=== PATIENT | male | born 1955 | race Caucasian/White ===

== ENCOUNTER → 2020-07-22 | Outpatient (CLI) | payer MEDICARE | LOC: CARD 12:49 | PROVIDERS: ATTEND Family Medicine | DX: I48.0 Paroxysmal atrial fibrillation (principal); I08.1 Rheumatic disorders of both mitral and tricuspid valves | CPT/HCPCS: 93306 ==

== ENCOUNTER 2020-07-29 14:14 | Inpatient (IN) | payer MEDICARE ==
[~2020-07-29] VITALS: Ht 188 cm; Wt 94.3 kg
[2020-07-29] VITALS (9 sets, daily range): BP systolic 85–125; BP diastolic 58–100
[2020-07-29] MEDS ORDERED: ENOXAPARIN 100 MG/1 ML (LOVENOX) SYR SC SCH (14:45)
[2020-07-29] MEDS ORDERED: dilTIAZem DRIP PRE-MIX 125 ML IV ONE (14:47)
[2020-07-29] MEDS ORDERED: DIGOXIN 0.25 MG/ML (LANOXIN) 2 ML AMP ONE (14:47)
[2020-07-29] MEDS ORDERED: ENOXAPARIN 40 MG/0.4 ML (LOVENOX) SYR ONE (14:48)
[2020-07-29 14:59] LABS: HEMOGLOBIN 13.6 G/DL (13.3-17.7); WHITE BLOOD COUNT 6.5 10^3/uL (4.3-11.0)
[2020-07-29 15:00] LABS: MEAN PLATELET VOLUME 12.1 FL (7.4-10.4)
[2020-07-29] MEDS ORDERED: APIX5TAB PO (15:01)
[2020-07-29] MEDS ORDERED: MULT-974 PO (15:01)
[2020-07-29] MEDS ORDERED: BUME1TAB8 PO (15:01)
[2020-07-29] MEDS ORDERED: METO-333 PO (15:01)
[2020-07-29] MEDS ORDERED: ALLO300T2 PO (15:01)
[2020-07-29] MEDS: dilTIAZem DRIP PRE-MIX 125 ML IV SCH (15:02)
[2020-07-29 15:12] LABS: ALANINE AMINOTRANSFERASE 63 U/L (0-55); ALBUMIN 3.9 GM/DL (3.2-4.5); ALKALINE PHOSPHATASE 112 U/L (40-136); BILIRUBIN,TOTAL 1.4 MG/DL (0.1-1.0); BUN/CREATININE RATIO 16; CALCIUM 8.7 MG/DL (8.5-10.1); CARBON DIOXIDE 27 MMOL/L (21-32); CHLORIDE 100 MMOL/L (98-107); CHOLESTEROL 111 MG/DL (< 200); CREATININE SERUM 1.18 MG/DL (0.60-1.30); GFR ESTIMATED > 60; GLUCOSE 101 MG/DL (70-105); HDL CHOLESTEROL 28 MG/DL (40-60); POTASSIUM 3.6 MMOL/L (3.6-5.0); SODIUM 138 MMOL/L (135-145); TOTAL PROTEIN 6.9 GM/DL (6.4-8.2); TRIGLYCERIDES 111 MG/DL (<150); VLDL CHOLESTEROL 22 MG/DL (5-40)
[2020-07-29] MEDS ORDERED: CATHETER FLUSH 10 ML SYR IV PRN (15:15)
[2020-07-29 15:20] LABS: INR 1.4 (0.8-1.4); PROTHROMBIN TIME PATIENT 17.4 SEC (12.2-14.7)
[2020-07-29] MEDS ORDERED: VIT1CAPS44 PO (15:44)
--- NOTE | 2020-07-29 16:52 | Cardiology History & Physical ---
HPI-Cardiology Cardiology Consultation Date of Consultation 07/29/20 Date of Admission Time Seen by Provider: 13:00 Indication: Shortness of breath HPI 65 years old gentleman seen in the office today for dyspnea, in atrial fibrillation and congestive heart failure, discussed the management plan and recommended admission to the ICU PMH-Cardiology Other PMHx discussed below Social History Patient Social History Marrital Status: Employed/Student: employed Family Hx Other non contributory ROS-Cardiology Review of Systems General: No Chills, No Night Sweats, No Fatigue, No Malaise, No Appetite HEENT: No Head Aches, No Visual Changes, No Eye Pain, No Ear Pain, No Dysphasia, No Sinus Congestion, No Post Nasal Drip, No Sore Throat Pulmonary: Dyspnea; No Cough, No Pleuritic Chest Pain Cardiovascular: Edema; No: Chest Pain, Palpitations, Orthopnea, Paroxysmal Noc. Dyspnea, Lt Headedness Gastrointestinal: No: Nausea, Vomiting, Abdominal Pain, Diarrhea, Constipation, Melena, Hematochezia Genitourinary: No Dysuria, No Frequency, No Incontinence, No Hematuria, No Retention Musculoskeletal: No: neck pain, shoulder pain, arm pain, back pain, hand pain, leg pain, foot pain Neurological: No: Weakness, Numbness, Incoordination, Change in speech, Confusion, Seizures Home Medications & Allergies Allergies: Coded Allergies: Penicillins (Verified Allergy, Unknown, 07/29/20) Home Medication List Reviewed: Yes Exam-Cardiology Vital Signs Vital Signs Date Time Temp Pulse Resp B/P (MAP) Pulse Ox O2 Delivery O2 Flow Rate FiO2 07/29/20 16:07 36.0 07/29/20 14:50 93 Room Air Exam General Appearance: Alert, Oriented X3, Cooperative, No Acute Distress HEENT: Atraumatic, PERRLA Respiratory: Clear to Auscultation, Normal Air Movement Cardiovascular: Normal S1, Normal S2, No Murmurs, Other (a fib) Abdominal: Normal Bowel Sounds, Soft, No Tenderness, No Hepatosplenomegaly, No Masses Extremities: No Clubbing, No Cyanosis, Normal Pulses, No Tenderness/Swelling, Other (pedal edema) Skin: No Rashes, No Breakdown, No Significant Lesion Neuro: Normal Gait, Normal Speech, Strength at 5/5 X4 Ext, Normal Tone, Sensation Intact Psych/Mental Status: Mental Status NL, Mood NL Results Labs Labs Laboratory Tests 07/29/20 14:47: White Blood Count 6.5, Red Blood Count 4.92, Hemoglobin 13.6, Hematocrit 41, Mean Corpuscular Volume 84, Mean Corpuscular Hemoglobin 28, Mean Corpuscular Hemoglobin Concent 33, Red Cell Distribution Width 15.4H, Platelet Count 167, Mean Platelet Volume 12.1H, Prothrombin Time 17.4H, INR Comment 1.4, Activated Partial Thromboplast Time 26, Sodium Level 138, Potassium Level 3.6, Chloride Level 100, Carbon Dioxide Level 27, Anion Gap 11, Blood Urea Nitrogen 19H, Creatinine 1.18, Estimat Glomerular Filtration Rate > 60, BUN/Creatinine Ratio 16, Glucose Level 101, Calcium Level 8.7, Corrected Calcium 8.8, Total Bilirubin 1.4H, Aspartate Amino Transf (AST/SGOT) 59H, Alanine Aminotransferase (ALT/SGPT) 63H, Alkaline Phosphatase 112, Troponin I < 0.028, B-Type Natriuretic Peptide 1612.6H, Total Protein 6.9, Albumin 3.9, Triglycerides Level 111, Cholesterol Level 111, LDL Cholesterol Direct 73, VLDL Cholesterol 22, HDL Cholesterol 28L, Thyroid Stimulating Hormone (TSH) 2.57 A/P-Cardiology Admission Diagnosis CHF Atrial fibrillation edema Admission Status: Inpatient Order (span 2 midnights) Reason for Inpatient Admission: CHF atrial fibrillation Assessment/Plan Congestive heart failure, acute left ventricular systolic dysfunction, ejection fraction 20 to 25%, left atrium dilated, moderate to severe mitral regurgitation, mild to moderate tricuspid regurgitation, PA pressure 45 to 50 mmHg. I am admitting him to ICU and starting diuretic Atrial fibrillation with rapid ventricular response, heart rate is 113. Maintained on Toprol 25 twice daily, patient is being admitted, I will start Cardizem drip and titrate Work-up for heart failure will include reversible causes and cardiac catheterization, evaluate TSH, hold Eliquis for now, start Lovenox. Add Entresto. Evaluate lipid profile Complex management plan, patient will be admitted for intensive care unit, initiating aggressive medical therapy and possible LifeVest ZOHRA CUBA MD Jul 29, 2020 16:52
[2020-07-29] MEDS: ENOXAPARIN 300 MG/3 ML (LOVENOX) MULTI-DOSE VIAL SQ SCH (17:00)
[2020-07-29] MEDS: FUROSEMIDE 40 MG/4 ML INJ (LASIX) IVP SCH (17:00)
[2020-07-29] MEDS ORDERED: MELATONIN 3 MG TABLET ONE (21:05)
[2020-07-29] MEDS: MELATONIN 3 MG TABLET PO SCH (21:20)
[2020-07-29] MEDS: meTOprolol TARTRATE 25 MG (LOPRESSOR) TABLET PO SCH (21:20)
[2020-07-29] MEDS: SACUBITRIL/VALSARTAN 24/26 MG (ENTRESTO) TABLET PO SCH (21:20)
[2020-07-29] MEDS ORDERED: NS IV 500 ML 500 ML IV SCH (22:00)
[2020-07-29] MEDS: CATHETER FLUSH 10 ML SYR IV SCH (22:02)
[2020-07-30] VITALS (25 sets, daily range): BP systolic 80–130; BP diastolic 57–100
[2020-07-30] MEDS: CATHETER FLUSH 10 ML SYR IV SCH ×3 (06:42→20:07)
[2020-07-30] MEDS: ENOXAPARIN 300 MG/3 ML (LOVENOX) MULTI-DOSE VIAL SQ SCH ×2 (06:42→17:31)
[2020-07-30 06:56] LABS: HEMOGLOBIN 11.9 g/dL (13.3-17.7); MEAN PLATELET VOLUME 11.5 fL (9.0-12.2); WHITE BLOOD COUNT 5.2 10^3/uL (4.3-11.0)
[2020-07-30 07:09] LABS: CHLORIDE 100 MMOL/L (98-107); POTASSIUM 2.8 MMOL/L (3.6-5.0); SODIUM 140 MMOL/L (135-145)
[2020-07-30 07:11] LABS: CALCIUM 8.1 MG/DL (8.5-10.1); GLUCOSE 85 MG/DL (70-105)
[2020-07-30 07:13] LABS: CARBON DIOXIDE 28 MMOL/L (21-32)
[2020-07-30 07:15] LABS: CREATININE SERUM 0.94 MG/DL (0.60-1.30); GFR ESTIMATED > 60
[2020-07-30 07:16] LABS: BUN/CREATININE RATIO 18
[2020-07-30] MEDS: FUROSEMIDE 40 MG/4 ML INJ (LASIX) IVP SCH ×2 (08:34→17:31)
[2020-07-30] MEDS: KCL 20 MEQ TAB (K-DUR) PO SCH ×3 (08:34→12:51)
[2020-07-30] MEDS: PANTOPRAZOLE 40 MG (PROTONIX) TAB PO SCH (08:35)
[2020-07-30] MEDS: meTOprolol TARTRATE 25 MG (LOPRESSOR) TABLET PO SCH ×2 (08:35→20:07)
[2020-07-30] MEDS: ASPIRIN E.C. 81 MG (ECOTRIN) TAB PO SCH (08:35)
[2020-07-30] MEDS: SACUBITRIL/VALSARTAN 24/26 MG (ENTRESTO) TABLET PO SCH ×2 (08:35→20:07)
--- NOTE | 2020-07-30 10:40 | Cardiology Progress Note ---
Subjective Date Seen by Provider: Jul 30, 2020 Time Seen by Provider: 10:37 Subjective/Events-last exam patient was seen and evaluated at bedside, laying down comfortably, having peripheral edema, reporting mild improvement in symptoms Review of Systems General: No Chills, No Night Sweats; Fatigue; No Malaise, No Appetite, No Other HEENT: No Head Aches, No Visual Changes, No Eye Pain, No Ear Pain, No Dysphasia, No Sinus Congestion, No Post Nasal Drip, No Sore Throat, No Other Pulmonary: Dyspnea; No Cough, No Pleuritic Chest Pain, No Other Cardiovascular: Edema; No: Chest Pain, Palpitations, Orthopnea, Paroxysmal Noc. Dyspnea, Lt Headedness, Other Objective-Cardiology Exam Last Set of Vital Signs Vital Signs 07/29/20 07/30/20 20:00 09:00 Pulse 98 Resp 25 B/P (MAP) 99/86 (90) Pulse Ox 91 O2 Delivery Room Air Capillary Refill : I&O Intake and Output 07/30/20 00:00 Intake Total 450 ml Output Total 2750 ml Balance -2300 ml Intake Oral 450 ml Output Urine Total 2750 ml General: Alert, Oriented X3, Cooperative, No Acute Distress HEENT: Atraumatic, PERRLA Neck: Supple, No JVD Lungs: Clear to Auscultation, Normal Air Movement Heart: Normal S1, Normal S2, No Murmurs, Other (a fib) Abdomen: Normal Bowel Sounds, Soft, No Tenderness, No Hepatosplenomegaly, No Masses Extremities: No Clubbing, No Cyanosis, Normal Pulses, No Tenderness/Swelling, Other (+3 pedal edema) Skin: No Rashes, No Breakdown, No Significant Lesion Neuro: Normal Gait, Normal Speech, Strength at 5/5 X4 Ext, Normal Tone, Sensation Intact Psych/Mental Status: Mental Status NL, Mood NL Results Lab Laboratory Tests 07/29/20 14:47 07/30/20 06:48 A/P-Cardiology Admission Diagnosis CHF Atrial fibrillation edema Assessment/Plan Congestive heart failure, acute left ventricular systolic dysfunction, ejection fraction 20 to 25%, left atrium dilated, moderate to severe mitral regurgitation, mild to moderate tricuspid regurgitation, PA pressure 45 to 50 mmHg. responding to diuretics, continue to replace and monitor Atrial fibrillation without ventricular response, better at this time, continue on Cardizem drip, continue on metoprolol and Lovenox. Planning to start long- term oral anticoagulation Hypokalemia, replace and monitor Questionable underlying coronary artery disease with severe cardiomyopathy, planning to proceed with left heart catheterization possible PTCA then will consider TJ and possible cardioversion ZOHRA CUBA MD Jul 30, 2020 10:40
--- NOTE | 2020-07-30 10:59 | Diagnostic Imaging Report ---
INDICATION: Dyspnea. TECHNIQUE: Single view chest 10:52 AM. CORRELATION STUDY: None FINDINGS: Heart size is enlarged. Pulmonary vasculature overall within normal limits. Asymmetric increased density in the right perihilar region. More peripheral lung price are otherwise clear. IMPRESSION: 1. Cardiac enlargement without failure. 2. Asymmetric density in the right hilum. Possibility of infiltrate and/or atelectasis not excluded. Would recommend short-term follow-up imaging to exclude underlying mass lesion given the focal asymmetry. Dictated by: Dictated on workstation # [id number]
[2020-07-30] MEDS: dilTIAZem DRIP PRE-MIX 125 ML IV SCH (14:50)
[2020-07-30] MEDS ORDERED: KCL 20 MEQ TAB (K-DUR) PO ONE (17:23)
[2020-07-30] MEDS ORDERED: KCL 20 MEQ TAB (K-DUR) PO NR (17:30)
[2020-07-30] MEDS: MELATONIN 3 MG TABLET PO SCH (20:07)
[2020-07-31] VITALS (28 sets, daily range): BP systolic 93–130; BP diastolic 50–108
[2020-07-31 03:27] LABS: HEMOGLOBIN 11.9 g/dL (13.3-17.7); MEAN PLATELET VOLUME 12.1 fL (9.0-12.2); WHITE BLOOD COUNT 5.8 10^3/uL (4.3-11.0)
[2020-07-31 03:54] LABS: ALANINE AMINOTRANSFERASE 39 U/L (0-55); ALBUMIN 3.2 GM/DL (3.2-4.5); ALKALINE PHOSPHATASE 83 U/L (40-136); BUN/CREATININE RATIO 15; CALCIUM 8.2 MG/DL (8.5-10.1); CARBON DIOXIDE 28 MMOL/L (21-32); CHLORIDE 101 MMOL/L (98-107); CREATININE SERUM 1.01 MG/DL (0.60-1.30); GFR ESTIMATED > 60; MAGNESIUM 1.7 MG/DL (1.6-2.4); SODIUM 140 MMOL/L (135-145); TOTAL PROTEIN 5.5 GM/DL (6.4-8.2)
[2020-07-31] MEDS: POTASSIUM CL 10MEQ/50ML IVPB 50 ML IV SCH (03:55)
[2020-07-31] MEDS: MAGNESIUM 1 GM/100 ML IVPB 100 ML IV SCH (03:56)
[2020-07-31] MEDS: KCL 20 MEQ TAB (K-DUR) PO SCH (03:56)
[2020-07-31 04:04] LABS: GLUCOSE 96 MG/DL (70-105)
[2020-07-31] MEDS: ENOXAPARIN 300 MG/3 ML (LOVENOX) MULTI-DOSE VIAL SQ SCH (04:52)
[2020-07-31] MEDS: CATHETER FLUSH 10 ML SYR IV SCH ×3 (04:52→19:58)
[2020-07-31] MEDS ORDERED: HEParin (CATH LAB) 2,000 ML IV ONE (06:43)
[2020-07-31] MEDS ORDERED: LIDOCAINE 1% INJ 20 ML 20 ML VIAL ONE (06:43)
[2020-07-31] MEDS ORDERED: fentaNYL INJ 100 MCG/2 ML AMP ONE (07:07)
[2020-07-31] MEDS ORDERED: MIDAZOLAM 5 MG/5 ML (VERSED) VIAL ONE (07:07)
[2020-07-31] MEDS ORDERED: NS IV 1000 ML 1,000 ML ONE (07:45)
[2020-07-31] MEDS: FUROSEMIDE 40 MG/4 ML INJ (LASIX) IVP SCH ×2 (08:00→16:49)
[2020-07-31] MEDS: NS IV 1000 ML 1,000 ML IV SCH ×4 (08:06→19:22)
[2020-07-31] MEDS ORDERED: HEParin 1000 UNIT/ML (10ML VIAL) FOR BOLUS ONE (08:15)
[2020-07-31] MEDS ORDERED: NITRO DRIP 25000 MCG/D5W 0 ML IV ONE (08:21)
[2020-07-31] MEDS ORDERED: CLOPIDOGREL 300 MG (PLAVIX) TABLET PO ONE (08:31)
[2020-07-31] MEDS ORDERED: ASPIRIN 325 MG (5 GR) TABLET ONE (08:31)
--- NOTE | 2020-07-31 08:52 | Cardiac Procedure Note-CS/ASA ---
Pre-Procedure Note Pre-Op Procedure Note H&P Reviewed The H&P was reviewed, patient examined and no changes noted. Date H&P Reviewed: Jul 31, 2020 Time H&P Reviewed: 08:00 Conscious Sedation Pre-Proced Time 08:00 ASA Score 3 For ASA 3 and 4: Consider anesthesia and medical clearance. Also, for patients with a history of failed moderate sedation consider anesthesia. Airway Lungs Heart ASA score ASA 1: a normal healthy patient ASA 2: a patient with a mild systemic disease (mid diabetes, controlled hypertension, obesity x ASA 3: a patient with a severe systemic disease that limits activity (angina, COPD, prior Myocardial infarction) ASA 4: a patient with an incapacitating disease that is a constant threat to life (CHF, renal failure) ASA 5: a moribund patient not expected to survive 24 hrs. (ruptured aneurysm) ASA 6: a declared brain- patient whose organs are being harvested. For emergent operations, add the letter E after the classification Mallampati Classification Grade 3 Sedation Plan Analgesia, Amnesia, Plan communicated to team members, Discussed options with patient/fam, Discussed risks with patient/fam The patient is an appropriate candidate to undergo the planned procedure, sedation, and anesthesia. The patient immediately re-assessed prior to indication. ZOHRA CUBA MD Jul 31, 2020 8:52 am
[2020-07-31] MEDS ORDERED: PATIENT MAY USE OWN MEDS, ALL PO SCH (09:00)
[2020-07-31] MEDS: PANTOPRAZOLE 40 MG (PROTONIX) TAB PO SCH (09:00)
--- NOTE | 2020-07-31 09:03 | Cardiac Cath Report ---
Cardiac Cath Report Physician (s)/Quality Engineer (s) Physician ZOHRA CUBA MD Pre-Procedure Diagnosis Pre-Procedure Diagnosis: congestive heart failure Post-Procedure Note Procedure Start Date: Jul 31, 2020 Name of Procedure: Left heart catheterization Stent to the circumflex artery Findings/Procedure Note PROCEDURE NOTE: 65 years old gentleman with paroxysmal atrial fibrillation, severe cardiomyopathy, was scheduled for cardiac catheterization due to the severe cardiomyopathy. After explaining the procedure to the patient, all pros and cons were explained, all questions were answered. The patient signed the consent and then he was placed on the cardiac catheterization laboratory. Groin was prepped SL fashion local anesthesia was used. Sheath placed in the right femoral artery. Radha right and left catheter were used to access the coronary system. Pigtail was used to access the left ventricular cavity. Left ventriculogram was not done, pressure was measured Patient was noted to have severe stenosis in the mid circumflex artery, given 6000 units of heparin, EBU 4 was advanced to the left coronary system, BMW wire advanced through the circumflex artery and 4 distally. I proceeded with primary stenting using Maisha 3 x 15 mm expanded to 3.13 mm under 17 braxton with excellent results. At the end of the procedure the sheath was removed. Closure device was deployed FINDINGS: Hemodynamics LV 100/19, end-diastolic pressure of 19 Aorta 103/77 mean of 74 ANATOMY: Left Main is free of obstructive disease Left Anterior Descending has mild ectasia proximally, the first diagonal artery has moderate stenosis at its ostium followed by aneurysmal dilation, medical therapy is recommended Left Circumflex has severe stenosis at the midportion, primary stenting using Maisha 3 x 15 mm expanded to 3.13 mm with excellent results Right Coronary Artery has diffuse ectasia with slow flow, nonobstructive disease LV Gram was not done, pressure was measured CONCLUSION: 1. Severe mid circumflex artery, successful stenting using Maisha 3 x 15 mm expanded to 3.13 mm with excellent results 2. Moderate stenosis at the ostium of the first diagonal artery followed by aneurysmal dilatation, medical therapy is recommended 3. Mild ectasia in the LAD, significant ectasia in the right coronary artery with slow flow in the right coronary artery due to small vessel disease 4. Elevated left ventricular end-diastolic pressure DISCUSSION AND RECOMMENDATION: Patient has severe cardiomyopathy, probably ischemic and nonischemic due to the atrial fibrillation with rapid ventricular response, we'll try to achieve adequate heart rate controlled, started on aspirin and Plavix in addition to starting Eliquis, continue to maximize medical therapy Anesthesia Type: Conscious Sedation Estimated blood loss (mL): 25 ml Contrast Amount: 96 ml Total Radiation Dose: 1186 mGy Post-Procedure Diagnosis Post-operative diagnosis: Coronary artery disease Congestive heart failure, acute left ventricular systolic dysfunction, nonischemic cardiomyopathy Persistent atrial fibrillation Hypertension ZOHRA CUBA MD Jul 31, 2020 9:03 am
--- NOTE | 2020-07-31 09:16 | Cardiology Progress Note ---
Subjective Date Seen by Provider: Jul 31, 2020 Time Seen by Provider: 09:14 Subjective/Events-last exam Patient was seen and evaluated, doing well. No chest pain. Groin is healing well Review of Systems General: No Chills, No Night Sweats, No Fatigue, No Malaise, No Appetite, No Other HEENT: No Head Aches, No Visual Changes, No Eye Pain, No Ear Pain, No Dysphasia, No Sinus Congestion, No Post Nasal Drip, No Sore Throat, No Other Pulmonary: No Dyspnea, No Cough, No Pleuritic Chest Pain, No Other Cardiovascular: Edema; No: Chest Pain, Palpitations, Orthopnea, Paroxysmal Noc. Dyspnea, Lt Headedness, Other Objective-Cardiology Exam Last Set of Vital Signs Vital Signs 07/31/20 07/31/20 07:38 09:00 Temp 36.4 Pulse 141 Resp 22 B/P (MAP) 93/50 (64) Pulse Ox 90 O2 Delivery Room Air Capillary Refill : Less Than 3 Seconds I&O Intake and Output 07/31/20 00:00 Intake Total 2175 ml Output Total 4450 ml Balance -2275 ml Intake Oral 2175 ml Output Urine Total 4450 ml General: Alert, Oriented X3, Cooperative, No Acute Distress HEENT: Atraumatic, PERRLA Neck: Supple, No JVD Lungs: Clear to Auscultation, Normal Air Movement Heart: Normal S1, Normal S2, No Murmurs, Other (a fib) Abdomen: Normal Bowel Sounds, Soft, No Tenderness, No Hepatosplenomegaly, No Masses Extremities: No Clubbing, No Cyanosis, Normal Pulses, No Tenderness/Swelling, Other (+3 pedal edema) Skin: No Rashes, No Breakdown, No Significant Lesion Neuro: Normal Gait, Normal Speech, Strength at 5/5 X4 Ext, Normal Tone, Sensation Intact Psych/Mental Status: Mental Status NL, Mood NL Results Lab Laboratory Tests 07/30/20 16:53 07/31/20 03:00 A/P-Cardiology Admission Diagnosis CHF Atrial fibrillation edema Assessment/Plan Congestive heart failure, acute left ventricular systolic dysfunction, ejection fraction 20 to 25%, left atrium dilated, moderate to severe mitral regurgitation, mild to moderate tricuspid regurgitation, PA pressure 45 to 50 mmHg. responding to diuretics, continue on current medication and monitor Atrial fibrillation with rapid ventricular response, better at this time, continue on Cardizem drip, I am changing to oral Cardizem and continue on oral metoprolol Coronary artery disease, cardiac catheterization done showing severe mid circumflex artery stenosis, primary stenting using Maisha 3 x 15 mm expanded to 3.13 mm with excellent results. Moderate ostial diagonal artery stenosis, ectasia in the right coronary artery with slow flow, mild ectasia in the LAD and mid-diagonal artery Hypokalemia, placed, potassium is back to normal, continue to monitor ZOHRA CUBA MD Jul 31, 2020 9:16 am
[2020-07-31] MEDS: ASPIRIN E.C. 81 MG (ECOTRIN) TAB PO SCH ×2 (09:18→11:18)
[2020-07-31] MEDS: meTOprolol TARTRATE 25 MG (LOPRESSOR) TABLET PO SCH ×2 (11:18→19:50)
[2020-07-31] MEDS: SACUBITRIL/VALSARTAN 24/26 MG (ENTRESTO) TABLET PO SCH ×2 (11:18→19:50)
[2020-07-31] MEDS: CLOPIDOGREL 75 MG (PLAVIX) TABLET PO SCH (11:18)
[2020-07-31] MEDS: APIXABAN 5 MG (ELIQUIS) TABLET PO SCH ×2 (11:18→19:50)
[2020-07-31] MEDS: MELATONIN 3 MG TABLET PO SCH (19:50)
[2020-08-01] VITALS (24 sets, daily range): BP systolic 85–110; BP diastolic 54–91
[2020-08-01] MEDS ORDERED: morphine INJ 4 MG/ML 1 ML (VIAL/SYRINGE) ONE (02:03)
[2020-08-01] MEDS: morphine INJ 4 MG/ML 1 ML (VIAL/SYRINGE) IVP PRN ×2 (02:23→04:02)
[2020-08-01] MEDS: NS IV 1000 ML 1,000 ML IV SCH ×2 (04:06→05:07)
[2020-08-01 05:10] LABS: HEMOGLOBIN 10.9 g/dL (13.3-17.7); MEAN PLATELET VOLUME 11.6 fL (9.0-12.2); WHITE BLOOD COUNT 7.6 10^3/uL (4.3-11.0)
[2020-08-01 05:30] LABS: BUN/CREATININE RATIO 13; CALCIUM 8.3 MG/DL (8.5-10.1); CARBON DIOXIDE 25 MMOL/L (21-32); CHLORIDE 102 MMOL/L (98-107); CREATININE SERUM 0.95 MG/DL (0.60-1.30); GFR ESTIMATED > 60; GLUCOSE 103 MG/DL (70-105); MAGNESIUM 1.8 MG/DL (1.6-2.4); PHOSPHORUS 3.1 MG/DL (2.3-4.7); POTASSIUM 3.4 MMOL/L (3.6-5.0); SODIUM 139 MMOL/L (135-145)
[2020-08-01] MEDS: POTASSIUM CL 10MEQ/50ML IVPB 50 ML IV SCH (05:33)
[2020-08-01] MEDS: MAGNESIUM 1 GM/100 ML IVPB 100 ML IV SCH (05:33)
[2020-08-01] MEDS: KCL 20 MEQ TAB (K-DUR) PO SCH (05:33)
[2020-08-01] MEDS: CATHETER FLUSH 10 ML SYR IV SCH ×3 (05:34→20:46)
[2020-08-01] MEDS: FUROSEMIDE 40 MG/4 ML INJ (LASIX) IVP SCH ×2 (06:03→17:22)
[2020-08-01] MEDS ORDERED: LIDOCAINE 2% VISCOUS 15 ML UDC ONE (07:46)
[2020-08-01] MEDS ORDERED: proPOfol 200 MG/20 ML (DIPRIVAN) VIAL IV ONE ×2 (07:54→11:51)
[2020-08-01] MEDS ORDERED: MIDAZOLAM 5 MG/5 ML (VERSED) VIAL ONE (07:54)
[2020-08-01] MEDS ORDERED: AMIODARONE (BOLUS) 150 MG/3 ML IV ONE (08:17)
[2020-08-01] MEDS ORDERED: AMIODARONE 450 MG/9 ML (CORDARONE) VIAL IV ONE (08:17)
[2020-08-01] MEDS ORDERED: D5W 100 ML IVPB 100 ML IV ONE (08:18)
[2020-08-01] MEDS ORDERED: AMIODARONE INJECTION 150 MG in D5W 100 ML IVPB 100 ML IV ONE (08:30)
--- NOTE | 2020-08-01 08:35 | Cardiac Procedure Note-CS/ASA ---
Pre-Procedure Note Pre-Op Procedure Note H&P Reviewed The H&P was reviewed, patient examined and no changes noted. Date H&P Reviewed: Aug 01, 2020 Time H&P Reviewed: 08:00 Conscious Sedation Pre-Proced Time 08:00 ASA Score 3 For ASA 3 and 4: Consider anesthesia and medical clearance. Also, for patients with a history of failed moderate sedation consider anesthesia. Airway Lungs Heart ASA score ASA 1: a normal healthy patient ASA 2: a patient with a mild systemic disease (mid diabetes, controlled hypertension, obesity x ASA 3: a patient with a severe systemic disease that limits activity (angina, COPD, prior Myocardial infarction) ASA 4: a patient with an incapacitating disease that is a constant threat to life (CHF, renal failure) ASA 5: a moribund patient not expected to survive 24 hrs. (ruptured aneurysm) ASA 6: a declared brain- patient whose organs are being harvested. For emergent operations, add the letter E after the classification Mallampati Classification Grade 3 Sedation Plan Analgesia, Amnesia, Plan communicated to team members, Discussed options with patient/fam, Discussed risks with patient/fam The patient is an appropriate candidate to undergo the planned procedure, sedation, and anesthesia. The patient immediately re-assessed prior to indication. ZOHRA CUBA MD Aug 01, 2020 8:35 am
--- NOTE | 2020-08-01 08:36 | Cardioversion ---
Cardioversion PROCEDURE PHYSICIAN: Zohra Raman DATE OF PROCEDURE: 08/01/20 DIRECT EXTERNAL ELECTRICAL CARDIOVERSION: Indications: Atrial Fibrillation with rapid ventricular rate Preoperative diagnoses: Atrial Fibrillation with rapid ventricular rate Postoperative diagnosis: Sinus rhythm, Successful Electrical Cardioversion Anesthesia: By Anesthesia services Complications: None Specimen: None Contrast: 0 Flouroscopy: none Procedure Details: The patient was brought the cardiac cath lab technologist after informed consent was taken, all the risks and complications were explained including the risk of stroke. Electrical cardioversion was carried out with anesthesia support with propofol. 200 joules of synchronized shock was delivered through external patches which promptly restored sinus rhythm. The patient tolerated the procedure well. Conclusions: Successful cardioversion, patient was unable to maintain sinus rhythm, he was started on amiodarone drip and will plan to repeat cardioversion at noon ZOHRA RAMAN MD Aug 01, 2020 8:36 am
--- NOTE | 2020-08-01 08:38 | Cardiology Progress Note ---
Subjective Date Seen by Provider: Aug 01, 2020 Time Seen by Provider: 08:36 Subjective/Events-last exam Patient was seen at bedside laying down comfortably denied any active pain Review of Systems General: No Chills, No Night Sweats, No Fatigue, No Malaise, No Appetite, No Other HEENT: No Head Aches, No Visual Changes, No Eye Pain, No Ear Pain, No Dysphasia, No Sinus Congestion, No Post Nasal Drip, No Sore Throat, No Other Pulmonary: No Dyspnea, No Cough, No Pleuritic Chest Pain, No Other Cardiovascular: No: Chest Pain, Palpitations, Orthopnea, Paroxysmal Noc. Dyspnea, Edema, Lt Headedness, Other Objective-Cardiology Exam Last Set of Vital Signs Vital Signs 08/01/20 08/01/20 08/01/20 06:00 06:42 08:18 Temp 36.3 Pulse 95 Resp 16 B/P (MAP) 110/87 (95) Pulse Ox 97 O2 Delivery Room Air Capillary Refill : Less Than 3 Seconds I&O Intake and Output 08/01/20 00:00 Intake Total 1190 ml Output Total 2600 ml Balance -1410 ml Intake Oral 1190 ml Output Urine Total 2600 ml # Voids 1 General: Alert, Oriented X3, Cooperative, No Acute Distress HEENT: Atraumatic, PERRLA Neck: Supple, No JVD Lungs: Clear to Auscultation, Normal Air Movement Heart: Normal S1, Normal S2, No Murmurs, Other (a fib) Abdomen: Normal Bowel Sounds, Soft, No Tenderness, No Hepatosplenomegaly, No Masses Extremities: No Clubbing, No Cyanosis, Normal Pulses, No Tenderness/Swelling, Other (+3 pedal edema) Skin: No Rashes, No Breakdown, No Significant Lesion Neuro: Normal Gait, Normal Speech, Strength at 5/5 X4 Ext, Normal Tone, Sensation Intact Psych/Mental Status: Mental Status NL, Mood NL Results Lab Laboratory Tests 08/01/20 04:27 A/P-Cardiology Admission Diagnosis CHF Atrial fibrillation edema Assessment/Plan Congestive heart failure, acute left ventricular systolic dysfunction, ejection fraction 20 to 25%, left atrium dilated, moderate to severe mitral regurgitation, mild to moderate tricuspid regurgitation, PA pressure 45 to 50 mmHg. Atrial fibrillation of unknown duration, underwent TJ on August 01, 2020 showing dilated left ventricle with EF 20-25 percent, severe mitral regurgitation, dilated left atrium, bicuspid aortic valve with mild aortic regurgitation. Electrical cardioversion was done, patient converted to sinus rhythm for few minutes and return to atrial fibrillation again, I will start him on amiodarone bolus and a drip and planning to repeat attempt for cardioversion later today Coronary artery disease, cardiac catheterization done showing severe mid circumflex artery stenosis, primary stenting using Maisha 3 x 15 mm expanded to 3.13 mm with excellent results. Moderate ostial diagonal artery stenosis, ectasia in the right coronary artery with slow flow, mild ectasia in the LAD and mid-diagonal artery Borderline hypotension secondary to medication. Continue with aggressive treatment ZOHRA CUBA MD Aug 01, 2020 8:38 am
--- NOTE | 2020-08-01 08:55 | Anesthesia-General Post-Op ---
MAC Patient Condition Mental Status/LOC: Same as Preop Cardiovascular: Satisfactory Nausea/Vomiting: Absent Respiratory: Satisfactory Pain: Controlled Complications: Absent Post Op Complications Complications None Follow Up Care/Instructions Patient Instructions None needed. Anesthesiology Discharge Order Discharge Order Patient is doing well, no complaints, stable vital signs, no apparent adverse anesthesia problems. No complications reported per nursing. KARLA WHITT CRNA Aug 01, 2020 08:55
[2020-08-01] MEDS: ASPIRIN E.C. 81 MG (ECOTRIN) TAB PO SCH ×2 (09:25)
[2020-08-01] MEDS: SACUBITRIL/VALSARTAN 24/26 MG (ENTRESTO) TABLET PO SCH ×2 (09:25→20:46)
[2020-08-01] MEDS: PANTOPRAZOLE 40 MG (PROTONIX) TAB PO SCH (09:25)
[2020-08-01] MEDS: CLOPIDOGREL 75 MG (PLAVIX) TABLET PO SCH (09:25)
[2020-08-01] MEDS: meTOprolol TARTRATE 25 MG (LOPRESSOR) TABLET PO SCH ×2 (09:25→20:46)
[2020-08-01] MEDS: APIXABAN 5 MG (ELIQUIS) TABLET PO SCH ×2 (09:25→20:46)
[2020-08-01] MEDS: AMIODARONE INJECTION 450 MG in D5W IV SOLUTION (EXCEL) 250 ML IV SCH ×2 (09:26→20:47)
[2020-08-01] MEDS ORDERED: KCL 20 MEQ TAB (K-DUR) PO ONE ×2 (10:00→13:05)
--- NOTE | 2020-08-01 12:31 | Cardiac Procedure Note-CS/ASA ---
Pre-Procedure Note Pre-Op Procedure Note H&P Reviewed The H&P was reviewed, patient examined and no changes noted. Date H&P Reviewed: Aug 01, 2020 Time H&P Reviewed: 12:00 Conscious Sedation Pre-Proced Time 12:00 ASA Score 3 For ASA 3 and 4: Consider anesthesia and medical clearance. Also, for patients with a history of failed moderate sedation consider anesthesia. Airway Lungs Heart ASA score ASA 1: a normal healthy patient ASA 2: a patient with a mild systemic disease (mid diabetes, controlled hypertension, obesity x ASA 3: a patient with a severe systemic disease that limits activity (angina, COPD, prior Myocardial infarction) ASA 4: a patient with an incapacitating disease that is a constant threat to life (CHF, renal failure) ASA 5: a moribund patient not expected to survive 24 hrs. (ruptured aneurysm) ASA 6: a declared brain- patient whose organs are being harvested. For emergent operations, add the letter E after the classification Mallampati Classification Grade 3 Sedation Plan Analgesia, Amnesia, Plan communicated to team members, Discussed options with patient/fam, Discussed risks with patient/fam The patient is an appropriate candidate to undergo the planned procedure, sedation, and anesthesia. The patient immediately re-assessed prior to indication. ZOHRA CUBA MD Aug 01, 2020 12:31
--- NOTE | 2020-08-01 12:35 | Cardioversion ---
Cardioversion PROCEDURE PHYSICIAN: Zohra Raman DATE OF PROCEDURE: 08/01/20 DIRECT EXTERNAL ELECTRICAL CARDIOVERSION: Indications: Atrial Fibrillation with rapid ventricular rate Preoperative diagnoses: Atrial Fibrillation with rapid ventricular rate Postoperative diagnosis: Short episode of sinus rhythm return to atrial fibrillation History: 65 years old gentleman with atrial fibrillation and severe cardiomyopathy, underwent TJ and electrical cardioversion this morning, failed to maintain sinus rhythm, started on amiodarone drip and decided to proceed with another cardioversion. Anesthesia: By Anesthesia services Complications: None Specimen: None Contrast: 0 Flouroscopy: none Procedure Details: The patient was brought the laboratory specialist after informed consent was taken, all the risks and complications were explained including the risk of stroke. Electrical cardioversion was carried out with anesthesia support with propofol. 200 joules of synchronized shock was delivered Twice through external patches, Patient returned to sinus rhythm but was unable to maintain sinus rhythm. Conclusions: Electrical cardioversion was delivered twice, failed to maintain sinus rhythm after the conversion ZOHRA RAMAN MD Aug 01, 2020 12:35
[2020-08-01] MEDS ORDERED: DIGOXIN 0.25 MG/ML (LANOXIN) 2 ML AMP IV ONE (12:45)
[2020-08-01] MEDS ORDERED: DIGOXIN 0.25 MG/ML (LANOXIN) 2 ML AMP ONE (13:38)
[2020-08-01] MEDS: DIGOXIN 0.25 MG (LANOXIN) TAB PO SCH (17:22)
[2020-08-01] MEDS: MELATONIN 3 MG TABLET PO SCH (20:46)
[2020-08-02] VITALS (22 sets, daily range): BP systolic 91–121; BP diastolic 57–94
[2020-08-02 04:23] LABS: BASOPHILS % (AUTO) 1 % (0-10); EOSINOPHILS # (AUTO) 0.2 10^3/uL (0.0-0.3); EOSINOPHILS % (AUTO) 3 % (0-10); HEMATOCRIT 33 % (40-54); HEMOGLOBIN 11.1 g/dL (13.3-17.7); LYMPHOCYTES % (AUTO) 15 % (12-44); MEAN CORPUSCULAR HEMOGLOBIN 28 pg (25-34); MEAN CORPUSCULAR HGB CONC 33 g/dL (32-36); MEAN CORPUSCULAR VOLUME 83 fL (80-99); MEAN PLATELET VOLUME 11.7 fL (9.0-12.2); MONOCYTES # (AUTO) 0.7 10^3/uL (0.0-1.0); MONOCYTES % (AUTO) 11 % (0-12); NEUTROPHILS # (AUTO) 4.5 10^3/uL (1.8-7.8); NEUTROPHILS % (AUTO) 70 % (42-75); PLATELET COUNT 207 10^3/uL (130-400); WHITE BLOOD COUNT 6.4 10^3/uL (4.3-11.0)
[2020-08-02 04:47] LABS: BUN/CREATININE RATIO 14; CARBON DIOXIDE 25 MMOL/L (21-32); CHLORIDE 101 MMOL/L (98-107); CREATININE SERUM 0.85 MG/DL (0.60-1.30); GFR ESTIMATED > 60; GLUCOSE 93 MG/DL (70-105); MAGNESIUM 1.7 MG/DL (1.6-2.4); PHOSPHORUS 2.9 MG/DL (2.3-4.7); POTASSIUM 3.2 MMOL/L (3.6-5.0); SODIUM 136 MMOL/L (135-145)
[2020-08-02] MEDS: CATHETER FLUSH 10 ML SYR IV SCH ×3 (04:50→20:04)
[2020-08-02] MEDS: POTASSIUM CL 10MEQ/50ML IVPB 50 ML IV SCH ×5 (04:51→11:26)
[2020-08-02] MEDS: MAGNESIUM 1 GM/100 ML IVPB 100 ML IV SCH (04:51)
[2020-08-02] MEDS: ASPIRIN E.C. 81 MG (ECOTRIN) TAB PO SCH ×2 (07:24→11:17)
[2020-08-02] MEDS: FUROSEMIDE 40 MG/4 ML INJ (LASIX) IVP SCH ×2 (08:07→18:47)
--- NOTE | 2020-08-02 08:24 | Cardiac Procedure Note-CS/ASA ---
Pre-Procedure Note Pre-Op Procedure Note H&P Reviewed The H&P was reviewed, patient examined and no changes noted. Date H&P Reviewed: Aug 02, 2020 Time H&P Reviewed: 08:23 Conscious Sedation Pre-Proced Time 08:23 ASA Score 3 For ASA 3 and 4: Consider anesthesia and medical clearance. Also, for patients with a history of failed moderate sedation consider anesthesia. Airway Lungs Heart ASA score ASA 1: a normal healthy patient ASA 2: a patient with a mild systemic disease (mid diabetes, controlled hypertension, obesity x ASA 3: a patient with a severe systemic disease that limits activity (angina, COPD, prior Myocardial infarction) ASA 4: a patient with an incapacitating disease that is a constant threat to life (CHF, renal failure) ASA 5: a moribund patient not expected to survive 24 hrs. (ruptured aneurysm) ASA 6: a declared brain- patient whose organs are being harvested. For emergent operations, add the letter E after the classification Mallampati Classification Grade 3 Sedation Plan Analgesia, Amnesia, Plan communicated to team members, Discussed options with patient/fam, Discussed risks with patient/fam The patient is an appropriate candidate to undergo the planned procedure, sedation, and anesthesia. The patient immediately re-assessed prior to indication. ZOHRA CUBA MD Aug 02, 2020 08:23
[2020-08-02] MEDS ORDERED: MIDAZOLAM 2 MG/2 ML (VERSED) VIAL ONE (08:31)
[2020-08-02] MEDS ORDERED: proPOfol 200 MG/20 ML (DIPRIVAN) VIAL IV ONE (08:31)
--- NOTE | 2020-08-02 09:08 | Cardioversion ---
Cardioversion PROCEDURE PHYSICIAN: Zohra Raman DATE OF PROCEDURE: 08/02/20 DIRECT EXTERNAL ELECTRICAL CARDIOVERSION: Indications: Atrial Fibrillation with rapid ventricular rate Preoperative diagnoses: Atrial Fibrillation with rapid ventricular rate Postoperative diagnosis: atrial fibrillation History: Anesthesia: By Anesthesia services Complications: None Specimen: None Contrast: 0 Flouroscopy: none Procedure Details: The patient was brought the orthodontic laboratory technician after informed consent was taken, all the risks and complications were explained including the risk of stroke. Electrical cardioversion was carried out with anesthesia support with propofol. 200 joules of synchronized shock was delivered through external patches which promptly restored sinus rhythm, patient could not maintain sinus rhythm, return to atrial fibrillation, a second shock was delivered, again he failed to maintain sinus rhythm. Procedure aborted Conclusions: Failed to attempt of cardioversion to maintain sinus rhythm ZOHRA RAMAN MD Aug 02, 2020 09:08
--- NOTE | 2020-08-02 09:10 | Cardiology Progress Note ---
Subjective Date Seen by Provider: Aug 02, 2020 Time Seen by Provider: 09:08 Subjective/Events-last exam patient is laying down in bed, no new complaint Review of Systems General: No Chills, No Night Sweats, No Fatigue, No Malaise, No Appetite, No Other HEENT: No Head Aches, No Visual Changes, No Eye Pain, No Ear Pain, No Dysphasia, No Sinus Congestion, No Post Nasal Drip, No Sore Throat, No Other Pulmonary: No Dyspnea, No Cough, No Pleuritic Chest Pain, No Other Cardiovascular: Edema; No: Chest Pain, Palpitations, Orthopnea, Paroxysmal Noc. Dyspnea, Lt Headedness, Other Objective-Cardiology Exam Last Set of Vital Signs Vital Signs 08/01/20 08/01/20 08/02/20 09:06 19:59 08:00 Temp 36.6 Pulse 138 Resp 14 B/P (MAP) 117/88 (98) Pulse Ox 95 O2 Delivery Room Air O2 Flow Rate 2.00 Capillary Refill : Less Than 3 Seconds I&O Intake and Output 08/02/20 00:00 Intake Total 1803 ml Output Total 4600 ml Balance -2797 ml Intake Oral 800 ml IV Total 1003 ml Output Urine Total 4600 ml General: Alert, Oriented X3, Cooperative, No Acute Distress HEENT: Atraumatic, PERRLA Neck: Supple, No JVD Lungs: Clear to Auscultation, Normal Air Movement Heart: Normal S1, Normal S2, No Murmurs, Other (a fib) Abdomen: Normal Bowel Sounds, Soft, No Tenderness, No Hepatosplenomegaly, No Masses Extremities: No Clubbing, No Cyanosis, Normal Pulses, No Tenderness/Swelling, Other (+3 pedal edema) Skin: No Rashes, No Breakdown, No Significant Lesion Neuro: Normal Gait, Normal Speech, Strength at 5/5 X4 Ext, Normal Tone, Sensation Intact Psych/Mental Status: Mental Status NL, Mood NL Results Lab Laboratory Tests 08/02/20 04:02 A/P-Cardiology Admission Diagnosis CHF Atrial fibrillation edema Assessment/Plan Congestive heart failure, acute left ventricular systolic dysfunction, ejection fraction 20 to 25%, left atrium dilated, moderate to severe mitral regurgitation, mild to moderate tricuspid regurgitation, PA pressure 45 to 50 mmHg.continue with aggressive diuresis Atrial fibrillation of unknown duration, underwent TJ on August 01, 2020 showing dilated left ventricle with EF 20-25 percent, severe mitral regurgitation, dilated left atrium, bicuspid aortic valve with mild aortic regurgitation. patient underwent a total of to attempt of cardioversion on August 01, 2020 and 1 attempt on August 02, 2020, he has failed to maintain sinus rhythm, we'll continue with amiodarone and start oral amiodarone loading dose and continue with digoxin. Coronary artery disease, cardiac catheterization done showing severe mid circumflex artery stenosis, primary stenting using Maisha 3 x 15 mm expanded to 3.13 mm with excellent results. Moderate ostial diagonal artery stenosis, ectasia in the right coronary artery with slow flow, mild ectasia in the LAD and mid-diagonal artery Borderline hypotension secondary to medication. Continue with aggressive treatment ZOHRA CUBA MD Aug 02, 2020 09:10
[2020-08-02] MEDS ORDERED: AMIODARONE 200 MG (CORDARONE) TAB ONE (11:09)
[2020-08-02] MEDS: KCL 20 MEQ TAB (K-DUR) PO SCH (11:17)
[2020-08-02] MEDS: CLOPIDOGREL 75 MG (PLAVIX) TABLET PO SCH (11:17)
[2020-08-02] MEDS: meTOprolol TARTRATE 25 MG (LOPRESSOR) TABLET PO SCH ×2 (11:17→20:03)
[2020-08-02] MEDS: AMIODARONE 200 MG (CORDARONE) TAB PO SCH ×2 (11:18→20:04)
[2020-08-02] MEDS: PANTOPRAZOLE 40 MG (PROTONIX) TAB PO SCH (11:22)
[2020-08-02] MEDS: APIXABAN 5 MG (ELIQUIS) TABLET PO SCH ×2 (11:22→20:03)
[2020-08-02] MEDS: DIGOXIN 0.25 MG (LANOXIN) TAB PO SCH (11:23)
[2020-08-02] MEDS: SACUBITRIL/VALSARTAN 24/26 MG (ENTRESTO) TABLET PO SCH ×2 (11:23→20:03)
--- NOTE | 2020-08-02 12:17 | Anesthesia-General Post-Op ---
MAC Patient Condition Mental Status/LOC: Same as Preop Cardiovascular: Satisfactory Nausea/Vomiting: Absent Respiratory: Satisfactory Pain: Controlled Complications: Absent Post Op Complications Complications None Follow Up Care/Instructions Patient Instructions None needed. Anesthesiology Discharge Order Discharge Order Patient was seen this morning after the procedure and he was doing well, no complaints, stable vital signs, no apparent adverse anesthesia problems. DUC SMITH 19, 2021 12:17
[2020-08-02] MEDS: MELATONIN 3 MG TABLET PO SCH (20:03)
[2020-08-03] VITALS (15 sets, daily range): BP systolic 84–144; BP diastolic 60–82
[2020-08-03 04:33] LABS: MAGNESIUM 1.7 MG/DL (1.6-2.4); PHOSPHORUS 3.3 MG/DL (2.3-4.7)
[2020-08-03] MEDS ORDERED: POTASSIUM CL 10MEQ/50ML IVPB 50 ML IV SCH (05:15)
[2020-08-03] MEDS: KCL 20 MEQ TAB (K-DUR) PO SCH (06:02)
[2020-08-03] MEDS: FUROSEMIDE 40 MG/4 ML INJ (LASIX) IVP SCH ×2 (06:02→16:02)
[2020-08-03] MEDS: CATHETER FLUSH 10 ML SYR IV SCH ×3 (06:03→20:16)
[2020-08-03] MEDS: POTASSIUM CL 10MEQ/50ML IVPB 50 ML IV SCH ×3 (06:03→07:30)
[2020-08-03] MEDS: MAGNESIUM 1 GM/100 ML IVPB 100 ML IV SCH ×3 (06:09→09:20)
[2020-08-03] MEDS: DIGOXIN 0.25 MG (LANOXIN) TAB PO SCH (08:59)
[2020-08-03] MEDS: APIXABAN 5 MG (ELIQUIS) TABLET PO SCH ×2 (08:59→20:15)
[2020-08-03] MEDS: SACUBITRIL/VALSARTAN 24/26 MG (ENTRESTO) TABLET PO SCH ×2 (08:59→20:18)
[2020-08-03] MEDS: CLOPIDOGREL 75 MG (PLAVIX) TABLET PO SCH (09:00)
[2020-08-03] MEDS: meTOprolol TARTRATE 25 MG (LOPRESSOR) TABLET PO SCH ×2 (09:00→20:18)
[2020-08-03] MEDS: ASPIRIN E.C. 81 MG (ECOTRIN) TAB PO SCH (09:00)
[2020-08-03] MEDS: AMIODARONE 200 MG (CORDARONE) TAB PO SCH ×2 (09:00→20:15)
[2020-08-03] MEDS: PANTOPRAZOLE 40 MG (PROTONIX) TAB PO SCH (09:00)
[2020-08-03] MEDS ORDERED: KCL 10 MEQ TAB (MICRO K) PO ONE (12:45)
--- NOTE | 2020-08-03 14:06 | Progress Note - Cardiology ---
Cardiology SOAP Progress Note Subjective: Gen malaise No cp or palp or syncope Shortness of breath has been improving No swelling No n/v/d Objective: I&O/Vital Signs 08/03/20 08/03/20 08/03/20 08/03/20 03:00 04:00 04:55 05:00 Pulse 80 80 84 Resp 14 22 19 B/P (MAP) 103/76 (85) 114/82 (93) 103/76 (85) Pulse Ox 92 94 95 O2 Delivery Room Air Room Air Room Air Room Air 08/03/20 08/03/20 08/03/20 08/03/20 06:00 07:00 07:00 07:24 Temp 37.0 Pulse 68 78 89 Resp 18 18 B/P (MAP) 102/73 (83) 101/81 (88) Pulse Ox 91 98 O2 Delivery Room Air Room Air 08/03/20 08/03/20 08/03/20 08/03/20 08:00 09:00 09:00 10:00 Pulse 101 85 64 Resp 20 27 17 B/P (MAP) 108/72 (84) 100/74 (83) 100/74 (83) Pulse Ox 96 95 96 O2 Delivery Room Air Room Air Room Air Room Air 08/03/20 08/03/20 08/03/20 08/03/20 11:00 11:23 11:24 12:00 Temp 36.2 Pulse 65 67 Resp 21 22 B/P (MAP) 84/66 (72) Pulse Ox 98 97 O2 Delivery Room Air Room Air 08/03/20 08/03/20 12:00 12:40 Pulse 76 O2 Delivery Room Air 08/03/20 00:00 Intake Total 1734 ml Output Total 2375 ml Balance -641 ml Constitutional: AAO x 3, well-developed, well-nourished Respiratory: No accessory muscle use; other (good, bilateral air entry) Cardiovascular: irregularly irregular, S1 and S2, systolic murmur (soft CARMEN at card base) Gastrointestional: No tender; soft; No guarding, No rebound Extremities: No clubbing, No cyanosis, No significant edema Neurologic/Psychiatric: oriented x 3, other (moves all limbs equally) Results/Procedures: Labs Laboratory Tests 08/03/20 03:50: Potassium Level 3.6, Phosphorus Level 3.3, Magnesium Level 1.7, Digoxin Level 0.87 Microbiology 07/29/20 MRSA Screen - Final, Complete MRSA not isolated Laboratory Tests 08/02/20 04:02 08/03/20 03:50 A/P: Assessment: Ac systolic CHF - TJ 08-01-20 (Dr Raman): ejection fraction 20 to 25%, left atrium dilated, moderate to severe mitral regurgitation, mild to moderate tricuspid regurgitation, PA pressure 45 to 50 mmHg.continue with aggressive diuresis Atrial fibrillation of unknown duration - failed cardioversion on August 01, 2020 and on August 02, 2020 after iv amiodarone Coronary artery disease - cardiac cath 07-31-20: severe mid circumflex artery stenosis stented with Maisha 3 x 15 mm, moderate ostial diagonal artery stenosis, ectasia in the right coronary artery with slow flow, mild ectasia in the LAD and mid-diagonal artery Borderline hypotension secondary to medication Severe cardiomyopathy (LVEF 20-25% on TJ of 08-01-20) - pt refuses LifeVest Plan: * Complex management due to multiple CV issues (see above) * I interviewed and examined the patient and reviewed his records. I also had discussed his case with Dr Raman yesterday * I had a long and detailed discussion with him and his today and advised Life Vest (as ordered by Dr Raman). The rationale and the pros and cons of using it and not using it were discussed at length. He fully understands that w/o it he is at higher risk of arrhythmic and still refuses it * D/c his short-acting dilt because heart rate is well controlled and bp is low * Continue to monitor CECILE VENCES MD FACP FAC CCDS Aug 03, 2020 14:06
[2020-08-03] MEDS: MELATONIN 3 MG TABLET PO SCH (20:15)
[2020-08-04 00:45] VITALS: BP 88/65
[2020-08-04 03:01] LABS: BASOPHILS % (AUTO) 1 % (0-10); EOSINOPHILS # (AUTO) 0.3 10^3/uL (0.0-0.3); EOSINOPHILS % (AUTO) 5 % (0-10); HEMATOCRIT 32 % (40-54); HEMOGLOBIN 10.4 g/dL (13.3-17.7); LYMPHOCYTES % (AUTO) 17 % (12-44); MEAN CORPUSCULAR HEMOGLOBIN 27 pg (25-34); MEAN CORPUSCULAR HGB CONC 33 g/dL (32-36); MEAN CORPUSCULAR VOLUME 83 fL (80-99); MEAN PLATELET VOLUME 11.4 fL (9.0-12.2); MONOCYTES # (AUTO) 0.6 10^3/uL (0.0-1.0); MONOCYTES % (AUTO) 10 % (0-12); NEUTROPHILS # (AUTO) 4.1 10^3/uL (1.8-7.8); NEUTROPHILS % (AUTO) 68 % (42-75); PLATELET COUNT 201 10^3/uL (130-400)
[2020-08-04 03:18] LABS: CHLORIDE 104 MMOL/L (98-107); POTASSIUM 3.1 MMOL/L (3.6-5.0); SODIUM 138 MMOL/L (135-145)
[2020-08-04 03:19] LABS: CALCIUM 7.5 MG/DL (8.5-10.1); GLUCOSE 89 MG/DL (70-105)
[2020-08-04 03:21] LABS: CARBON DIOXIDE 25 MMOL/L (21-32)
[2020-08-04 03:23] LABS: PHOSPHORUS 3.1 MG/DL (2.3-4.7)
[2020-08-04 03:24] LABS: BUN/CREATININE RATIO 13; CREATININE SERUM 0.84 MG/DL (0.60-1.30); GFR ESTIMATED > 60
[2020-08-04 03:26] LABS: MAGNESIUM 1.8 MG/DL (1.6-2.4)
[2020-08-04 04:07] VITALS: BP 85/55
[2020-08-04] MEDS: KCL 20 MEQ TAB (K-DUR) PO SCH (06:14)
[2020-08-04] MEDS: FUROSEMIDE 40 MG/4 ML INJ (LASIX) IVP SCH (06:14)
[2020-08-04] MEDS: POTASSIUM CL 10MEQ/50ML IVPB 50 ML IV SCH ×5 (06:15→10:46)
[2020-08-04] MEDS: MAGNESIUM 1 GM/100 ML IVPB 100 ML IV SCH (06:15)
[2020-08-04] MEDS: CATHETER FLUSH 10 ML SYR IV SCH ×2 (06:16→12:23)
[2020-08-04 08:17] VITALS: BP 95/58
[2020-08-04] MEDS: AMIODARONE 200 MG (CORDARONE) TAB PO SCH (08:21)
[2020-08-04] MEDS: SACUBITRIL/VALSARTAN 24/26 MG (ENTRESTO) TABLET PO SCH (08:21)
[2020-08-04] MEDS: ASPIRIN E.C. 81 MG (ECOTRIN) TAB PO SCH (08:21)
[2020-08-04] MEDS: meTOprolol TARTRATE 25 MG (LOPRESSOR) TABLET PO SCH (08:21)
[2020-08-04] MEDS: PANTOPRAZOLE 40 MG (PROTONIX) TAB PO SCH (08:22)
[2020-08-04] MEDS: DIGOXIN 0.25 MG (LANOXIN) TAB PO SCH (08:22)
[2020-08-04] MEDS: CLOPIDOGREL 75 MG (PLAVIX) TABLET PO SCH (08:22)
[2020-08-04] MEDS: APIXABAN 5 MG (ELIQUIS) TABLET PO SCH (08:22)
[2020-08-04] MEDS ORDERED: KCL 20 MEQ TAB (K-DUR) PO ONE (12:30)
[2020-08-04 12:47] VITALS: BP 88/65
[2020-08-04] MEDS ORDERED: FURO10VI PO (12:55)
[2020-08-04] MEDS ORDERED: DIGO250T15 PO (12:55)
[2020-08-04] MEDS ORDERED: CLOP75TA28 PO (12:55)
[2020-08-04] MEDS ORDERED: POTA20TA8 PO (12:55)
[2020-08-04] MEDS ORDERED: SACU1TAB2 PO (12:55)
[2020-08-04] MEDS ORDERED: PANT40TA52 PO (12:55)
[2020-08-04] MEDS ORDERED: AMIO200T6 PO ×2 (12:55→13:05)
[2020-08-04] MEDS ORDERED: APIX5TAB PO ×2 (12:55→13:11)
[2020-08-04] MEDS ORDERED: METO-333 PO (13:11)
--- NOTE | 2020-08-04 13:43 | Progress Note - Cardiology ---
Cardiology SOAP Progress Note Subjective: Shortness of breath better No cp No palp or syncope or swelling No n/v/d Gen malaise present Wants to go home Objective: I&O/Vital Signs 08/04/20 08/04/20 08/04/20 08/04/20 04:07 07:00 08:17 08:49 Temp 36.4 36.8 Pulse 80 78 71 Resp 16 18 B/P (MAP) 85/55 (65) 95/58 (70) Pulse Ox 95 97 97 O2 Delivery Room Air Room Air Room Air 08/04/20 08/04/20 12:47 13:00 Pulse 89 76 Resp 20 B/P (MAP) 88/65 (73) Pulse Ox 97 O2 Delivery Room Air 08/04/20 00:00 Intake Total 1420 ml Output Total 300 ml Balance 1120 ml Constitutional: AAO x 3, well-developed, well-nourished Respiratory: No accessory muscle use; other (good, bilateral air entry) Cardiovascular: irregularly irregular, S1 and S2, systolic murmur (soft CARMEN at card base) Gastrointestional: No tender; soft; No guarding, No rebound Extremities: No clubbing, No cyanosis, No significant edema Neurologic/Psychiatric: oriented x 3, other (moves all limbs equally) Results/Procedures: Labs Laboratory Tests 08/04/20 02:55: White Blood Count 6.0, Red Blood Count 3.80L, Hemoglobin 10.4L, Hematocrit 32L, Mean Corpuscular Volume 83, Mean Corpuscular Hemoglobin 27, Mean Corpuscular Hemoglobin Concent 33, Red Cell Distribution Width 14.9H, Platelet Count 201, Mean Platelet Volume 11.4, Immature Granulocyte % (Auto) 0, Neutrophils (%) (Auto) 68, Lymphocytes (%) (Auto) 17, Monocytes (%) (Auto) 10, Eosinophils (%) (Auto) 5, Basophils (%) (Auto) 1, Neutrophils # (Auto) 4.1, Lymphocytes # (Auto) 1.0, Monocytes # (Auto) 0.6, Eosinophils # (Auto) 0.3, Basophils # (Auto) 0.0, Immature Granulocyte # (Auto) 0.0, Sodium Level 138, Potassium Level 3.1L, Ch loride Level 104, Carbon Dioxide Level 25, Anion Gap 9, Blood Urea Nitrogen 11, Creatinine 0.84, Estimat Glomerular Filtration Rate > 60, BUN/Creatinine Ratio 13, Glucose Level 89, Calcium Level 7.5L, Phosphorus Level 3.1, Magnesium Level 1.8 Microbiology 07/29/20 MRSA Screen - Final, Complete MRSA not isolated A/P: Assessment: systolic CHF - TJ 08-01-20 (Dr Raman): ejection fraction 20 to 25%, left atrium dilated, mod erate to severe mitral regurgitation, mild to moderate tricuspid regurgitation, PA pressure 45 to 50 mmHg.continue with aggressive diuresis Atrial fibrillation of unknown duration - failed cardioversion on August 01, 2020 and on August 02, 2020 after iv ami odarone Coronary artery disease - cardiac cath 07-31-20: severe mid circumflex artery stenosis stented with Maisha 3 x 15 mm, moderate ostial diagonal artery stenosis, ectasia in the right coronary artery with slow flow, mild ectasia in the LAD and mid-diagonal artery Borderline hypotension secondary to medication Severe cardiomyopathy (LVEF 20-25% on TJ of 08-01-20) - pt refuses LifeVest Plan: * Complex management due to multiple CV issues (see above) * I had a long and detailed discussion with him and his ton 08/03/20 and advised Life Vest (as ordered by Dr Raman). The rationale and the pros and cons of using it and not using it were discussed at length. He fully understands that w/o it he is at higher risk of arrhythmic and still refuses it. Today, we discussed that again. He has not agreed to Life Vest * Change Lasix to oral * Replenish K * Short-acting dilt d/c'd on 08/03/20because heart rate is well controlled and bp has been running somewhat low * Currently on ASA + Plavix + Eliquis. This significantly raises risk for bleeding. D/c ASA. Continue Plavix because of CAD and cor stent. 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
[2020-08-04 14:35] VITALS: BP 88/65
== END 2020-08-04 14:15 | disposition home or self-care (01) | DRG 246 ==
LOC: ICU 14:26 → CSD 08-03 15:02
PROVIDERS: ADMIT Internal Medicine Cardiovascular Disease; ATTEND Internal Medicine Cardiovascular Disease
PROC: 027034Z Dilation of Coronary Artery, One Artery with Drug-eluting Intraluminal Device, Percutaneous Approach (ICD-10-PCS; principal; 2020-07-31)
PROC: 4A023N7 Measurement of Cardiac Sampling and Pressure, Left Heart, Percutaneous Approach (ICD-10-PCS; 2020-07-31)
PROC: B2111ZZ Fluoroscopy of Multiple Coronary Arteries using Low Osmolar Contrast (ICD-10-PCS; 2020-07-31)
PROC: 5A2204Z Restoration of Cardiac Rhythm, Single (ICD-10-PCS; 2020-08-01)
PROC: 5A2204Z Restoration of Cardiac Rhythm, Single (ICD-10-PCS; 2020-08-02)
DX: I48.0 Paroxysmal atrial fibrillation (principal); I50.21 Acute systolic (congestive) heart failure; I42.8 Other cardiomyopathies; I11.0 Hypertensive heart disease with heart failure; I25.10 Atherosclerotic heart disease of native coronary artery without angina pectoris; Z88.0 Allergy status to penicillin; I48.19 Other persistent atrial fibrillation
CPT/HCPCS: 36415; 71045; 80048; 80053; 80061; 80162; 83735; 83880; 84100; 84132; 84443; 84484; 85025; 85027; 85347; 85610; 85730; 87081; 93005; 93312; 93320; 93325; 93458

== ENCOUNTER → 2020-09-09 | Outpatient (CLI) | payer MEDICARE ==
[~2020-09-09] MED LIST: ALLO300T2 PO; AMIO200T50 PO; AMIO200T6 PO; APIX5TAB PO; BUME1TAB8 PO; CLOP75TA28 PO; DIGO250T15 PO; DIGO250T3 PO; FURO10VI PO; FURO40TA4 PO; MAXI VISION PO; MELA5TAB14 PO; METO-333 PO; MULT-974 PO; PANT40TA52 PO; POTA-51 PO; POTA20TA8 PO; SACU1TAB2 PO; VIT1CAPS44 PO
== END ==
LOC: LABNPT 06:33
PROVIDERS: ATTEND Internal Medicine Cardiovascular Disease
DX: Z01.812 Encounter for preprocedural laboratory examination (principal); Z20.822 Contact with and (suspected) exposure to COVID-19
CPT/HCPCS: 87635

== ENCOUNTER → 2020-09-11 | Day surgery (SDC) | payer MEDICARE ==
[2020-09-11] VITALS (8 sets, daily range): BP systolic 118–148; BP diastolic 70–113
[~2020-09-11] VITALS: Ht 184 cm; Wt 94.0 kg
[~2020-09-11] MED LIST changes: +LIDOCAINE 2% VISCOUS 15 ML UDC ONE; +LIDOCAINE 2% VISCOUS 15 ML UDC PO ONE; +NS IV 1000 ML 1,000 ML IV SCH; +NS IV 1000 ML 1,000 ML ONE; +proPOfol 200 MG/20 ML (DIPRIVAN) VIAL IV ONE
[2020-09-11 08:48] LABS: HEMOGLOBIN 13.1 g/dL (13.3-17.7); MEAN PLATELET VOLUME 10.5 fL (9.0-12.2); WHITE BLOOD COUNT 4.8 10^3/uL (4.3-11.0)
--- NOTE | 2020-09-11 09:00 | Diagnostic Imaging Report ---
Indication: Preop for a cardioversion. Patient has atrial fibrillation. Time of exam: 8:42 AM Correlation is made with prior chest 07/30/2020. The heart is enlarged and stable. Lungs are clear. No infiltrate or failure is detected. No effusion or pneumothorax is identified. Impression: Cardiomegaly. No acute feature is detected. Dictated by: Dictated on workstation # [id number]
[2020-09-11 09:11] LABS: INR 1.2 (0.8-1.4); PROTHROMBIN TIME PATIENT 15.2 SEC (12.2-14.7)
[2020-09-11 09:21] LABS: ALANINE AMINOTRANSFERASE 30 U/L (0-55); ALKALINE PHOSPHATASE 110 U/L (40-136); BILIRUBIN,TOTAL 0.7 MG/DL (0.1-1.0); BUN/CREATININE RATIO 13; CALCIUM 8.5 MG/DL (8.5-10.1); CARBON DIOXIDE 29 MMOL/L (21-32); CHLORIDE 104 MMOL/L (98-107); CHOLESTEROL 141 MG/DL (< 200); CREATININE SERUM 0.93 MG/DL (0.60-1.30); GFR ESTIMATED > 60; GLUCOSE 101 MG/DL (70-105); HDL CHOLESTEROL 39 MG/DL (40-60); POTASSIUM 3.7 MMOL/L (3.6-5.0); SODIUM 141 MMOL/L (135-145); TOTAL PROTEIN 6.9 GM/DL (6.4-8.2); TRIGLYCERIDES 83 MG/DL (<150); VLDL CHOLESTEROL 17 MG/DL (5-40)
--- NOTE | 2020-09-11 10:26 | Anesthesia-General Post-Op ---
MAC Patient Condition Mental Status/LOC: Same as Preop Cardiovascular: Satisfactory Nausea/Vomiting: Absent Respiratory: Satisfactory Pain: Controlled Complications: Absent Post Op Complications Complications None Follow Up Care/Instructions Patient Instructions None needed. Anesthesiology Discharge Order Discharge Order Patient is doing well, no complaints, stable vital signs, no apparent adverse anesthesia problems. No complications reported per nursing. KARLA WHITT CRNA Sep 11, 2020 10:26
--- NOTE | 2020-09-11 10:39 | Conscious Sedation/ASA ---
Conscious Sedation Pre-Proced Time 08:30 ASA Score 3 For ASA 3 and 4: Consider anesthesia and medical clearance. Also, for patients with a history of failed moderate sedation consider anesthesia. Airway Lungs Heart ASA score ASA 1: a normal healthy patient ASA 2: a patient with a mild systemic disease (mid diabetes, controlled hypertension, obesity x ASA 3: a patient with a severe systemic disease that limits activity (angina, COPD, prior Myocardial infarction) ASA 4: a patient with an incapacitating disease that is a constant threat to life (CHF, renal failure) ASA 5: a moribund patient not expected to survive 24 hrs. (ruptured aneurysm) ASA 6: a declared brain- patient whose organs are being harvested. For emergent operations, add the letter E after the classification Mallampati Classification Grade 3 Sedation Plan Analgesia, Amnesia, Plan communicated to team members, Discussed options with patient/fam, Discussed risks with patient/fam The patient is an appropriate candidate to undergo the planned procedure, sedation, and anesthesia. The patient immediately re-assessed prior to indication. ZOHRA CUBA MD Sep 11, 2020 10:39
--- NOTE | 2020-09-11 10:43 | Discharge Inst-Post CATH ---
Discharge Inst-CATH/EP Problems Reviewed?: Yes Post Cardiac Cath/EP D/C Inst Follow Up/Plan Appointment with Dr. Raman's office in 2 to 4 weeks <b>CARDIAC CATH/EP PROCEDURE DISCHARGE INSTRUCTIONS</b> ACTIVITY * Go Home directly and rest. * Limit activity of the leg (or wrist if it was used) for 7 days including aer obics, swimming, jogging, bicycling, etc. * Restrict stair-climbing for 7 days if possible, if not, climb up with your non-cath leg, then bring together on the same step. * Avoid lifting, pushing, pulling or excessive movement of the affected extremi ty for 7 days. * Customary sexual activity may be resumed after 2 days-use caution not to use a position that strains or causes pain to the affected extremity. * No driving for 24 hours. * NO SMOKING. * Avoid straining for bowel movements for 7 days. * Gentle walking on level ground is allowed. * Returning to work will depend on the type of procedure and the results. Your doctor will discuss this with you. CALL YOUR DOCTOR FOR ANY OF THE FOLLOWING: *If bleeding from the puncture site occurs- Apply gentle pressure to site with clean cloth and call your doctor or EMS. * If a knot or lump forms under the skin, increases in size, or causes pain. * If bruising appears to be worsening or moving further down your leg instead of disappearing. * Temperature above 101 F. CARE OF YOUR GROIN INCISION; * Bruising or purple discoloration of the skin near the puncture site is common. * You may shower only, no bathtub bathing for 5 days. Be careful to avoid slipping as your leg may feel stiff. * If a closure device was used on your femoral artery, please see the attached guide regarding care of the device and your leg. * Leave dressing on FOR 24 hours. CARE OF YOUR WRIST INCISION; * Bruising or purple discoloration of the skin near the puncture site is common. * You may shower. * DO NOT submerge wrist. * Leave dressing on FOR 24 hours. ZOHRA RAMAN MD Sep 11, 2020 10:43
--- NOTE | 2020-09-11 10:44 | Cardioversion ---
Cardioversion PROCEDURE PHYSICIAN: Zohra Raman DATE OF PROCEDURE: 09/11/20 DIRECT EXTERNAL ELECTRICAL CARDIOVERSION: Indications: Atrial Fibrillation Preoperative diagnoses: Atrial Fibrillation Postoperative diagnosis: Sinus rhythm, Successful Electrical Cardioversion History: Anesthesia: By Anesthesia services Complications: None Specimen: None Contrast: 0 Flouroscopy: none Procedure Details: The patient was brought the skilled labor after informed consent was taken, all the risks and complications were explained including the risk of stroke. Electrical cardioversion was carried out with anesthesia support with propofol. 120 joules of synchronized shock was delivered through external patches which promptly restored sinus rhythm. The patient tolerated the procedure well. Conclusions: Successful electrical cardioversion in terminating atrial fibrillation Final Diagnosis: Atrial fibrillation Palpitation Congestive heart failure, chronic compensated left ventricular systolic dysfunction, ischemic cardiomyopathy Hypertension Hyperlipidemia ZOHRA RAMAN MD Sep 11, 2020 10:44
== END ==
LOC: CATH 10:30
PROVIDERS: ATTEND Internal Medicine Cardiovascular Disease
DX: I48.91 Unspecified atrial fibrillation (principal); I11.0 Hypertensive heart disease with heart failure; I50.22 Chronic systolic (congestive) heart failure; E78.5 Hyperlipidemia, unspecified; I25.10 Atherosclerotic heart disease of native coronary artery without angina pectoris; Z79.01 Long term (current) use of anticoagulants; Z79.899 Other long term (current) drug therapy; Z88.0 Allergy status to penicillin
CPT/HCPCS: 36415; 71045; 80053; 80061; 85027; 85610; 85730; 87081; 92960; 93005; 93312

== ENCOUNTER → 2020-10-16 | Outpatient (CLI) | payer MEDICARE ==
[~2020-10-16] MED LIST changes: -LIDOCAINE 2% VISCOUS 15 ML UDC ONE; -LIDOCAINE 2% VISCOUS 15 ML UDC PO ONE; -NS IV 1000 ML 1,000 ML IV SCH; -NS IV 1000 ML 1,000 ML ONE; -proPOfol 200 MG/20 ML (DIPRIVAN) VIAL IV ONE
== END ==
LOC: CARD 13:30
PROVIDERS: ATTEND Internal Medicine Cardiovascular Disease
DX: I11.9 Hypertensive heart disease without heart failure (principal); I34.0 Nonrheumatic mitral (valve) insufficiency; I25.10 Atherosclerotic heart disease of native coronary artery without angina pectoris
CPT/HCPCS: 93306

== ENCOUNTER → 2021-02-05 | Outpatient (CLI) | payer MEDICARE ==
[~2021-02-05] VITALS: Ht 187 cm; Wt 97.0 kg
[~2021-02-05] MED LIST changes: +CATHETER FLUSH 10 ML SYR IV PRN; +REGADENOSON 0.4 MG/5 ML SYR (LEXISCAN) IV ONE
[2021-02-05 09:15] VITALS: BP 140/89
--- NOTE | 2021-02-05 15:06 | Cardiology Stress Test Report ---
Stress Test Report Date of Procedure/Referring: Date of Procedure: Feb 05, 2021 PCP Zohra Raman MD Admitting Physician No,Local Physician Indications: HTN Baseline Heart Rate: 56 Baseline Blood Pressure: Blood Pressure Systolic: 140 Blood Pressure Diastolic: 89 Baseline Vitals Vital Signs Date Time Temp Pulse Resp B/P (MAP) Pulse Ox O2 Delivery O2 Flow Rate FiO2 02/05/21 09:15 75 20 140/89 (106) 99 Baseline EKG: Baseline EKG: NSR Summary After explaining the procedure to the patient, he signed a consent and then brought to the stress nuclear laboratory. Patient received 0.4 mg Lexiscan for stress test, ECG, heart rate and blood pressure were monitored continuously. Resting and stress dose of radio tracer were injected, imaging was acquired and reviewed in short axis, horizontal long axis and vertical long axis views. TID: 0.99 SSS: 8 SDS: 7 EF: 38 1. Patient tolerated Lexiscan well 2. Reversible ischemia involving the mid to apical inferior wall and inferolateral wall 3. Normal left ventricular size with hypokinesia involving the inferior wall, inferoapex, true apex and anterior apex and anterolateral wall, EF 38% ZOHRA RAMAN MD Feb 05, 2021 15:06
== END ==
LOC: CARD 07:30
PROVIDERS: ATTEND Internal Medicine Cardiovascular Disease
DX: I10 Essential (primary) hypertension (principal); I25.10 Atherosclerotic heart disease of native coronary artery without angina pectoris
CPT/HCPCS: 78452; 93017; A9502

== ENCOUNTER → 2021-08-21 | Outpatient (CLI) | payer MEDICARE ==
[~2021-08-21] MED LIST changes: -AMIO200T6 PO; +AMIO200T65 PO; -CATHETER FLUSH 10 ML SYR IV PRN; +POTA-169 PO; -POTA20TA8 PO; -REGADENOSON 0.4 MG/5 ML SYR (LEXISCAN) IV ONE
== END ==
LOC: CARDFS 14:40
PROVIDERS: ATTEND Internal Medicine Cardiovascular Disease
DX: I10 Essential (primary) hypertension (principal); I25.10 Atherosclerotic heart disease of native coronary artery without angina pectoris
CPT/HCPCS: 93306

== ENCOUNTER → 2022-04-30 | Outpatient (CLI) | payer MEDICARE ==
--- NOTE | 2022-04-30 13:59 | Diagnostic Imaging Report ---
EXAMINATION: Chest 2 view HISTORY: Paroxysmal atrial fibrillation. COMPARISON: 09/11/2020 FINDINGS: Heart size and pulmonary vasculature are normal. The lungs are clear without consolidation, pleural effusion, or pneumothorax. The osseous structures are intact. IMPRESSION: 1. No acute radiographic abnormality in the chest. Dictated by: Dictated on workstation # [id number]
== END ==
LOC: CARDFS 12:51
PROVIDERS: ATTEND Physician Assistant
DX: I08.0 Rheumatic disorders of both mitral and aortic valves (principal); I11.9 Hypertensive heart disease without heart failure; I25.10 Atherosclerotic heart disease of native coronary artery without angina pectoris; I48.0 Paroxysmal atrial fibrillation
CPT/HCPCS: 71046; C8929; 93306